=== PATIENT | female | born 1985 | race Caucasian/White ===

== ENCOUNTER 2020-05-04 17:21 | Emergency (ER) | payer BC ==
[2020-05-04 17:29] VITALS: BP 184/86
[2020-05-04] MEDS ORDERED: AMLODIPINE BESYLATE 5 MG TABLET PO ONE (17:52)
--- NOTE | 2020-05-04 17:52 | ER Document Report ---
HPI - HPI Patient complains to provider of: Elevated Blood Pressure Time Seen by Provider: 05/04/20 17:47 Pain Level: Denies Context: 35-year-old female past medical history significant for hypertension states she went to the doctor's office today to get ultrasound results and states that they told her her blood pressure was elevated 202/107. Patient admits that she has run out of her amlodipine. Forgot to call her primary care physician for help. States she did take her lisinopril as scheduled. Sent her to the emergency room because of her elevated blood pressure. She denies any chest pain, shortness of breath, no difficulty breathing. Asymptomatic with her elevated blood pressure. Associated Symptoms: None Exacerbated by: Denies Relieved by: Denies Similar symptoms previously: Yes - History of hypertension - CONSTITUTIONAL Constitutional: DENIES: Fever, Chills - EENT EENT: DENIES: Sore Throat, Ear Pain, Eye problems - NEURO Neurology: DENIES: Headache, Weakness, Vision blurred, Dizzinesss / Vertigo - CARDIOVASCULAR Cardiovascular: DENIES: Chest pain - RESPIRATORY Respiratory: DENIES: Trouble Breathing, Coughing - GASTROINTESTINAL Gastrointestinal: DENIES: Abdominal Pain, Black / Bloody Stools - URINARY Urinary: DENIES: Dysuria, Urgency, Frequency - REPRODUCTIVE LMP: 04/25/20 Reproductive: DENIES: : - MUSCULOSKELETAL Musculoskeletal: DENIES: Extremity pain Past Medical History - General Information source: Patient - Social History Smoking Status: Current Every Day Smoker Frequency of alcohol use: Occasional Drug Abuse: None Family History: Hypertension Patient has homicidal ideation: No Vertical Provider Document - CONSTITUTIONAL Agree With Documented VS: Yes Exam Limitations: No Limitations Notes: VITAL SIGNS: Within normal limits. GENERAL: No acute distress, non-toxic appearance. HEAD: Normal with no signs of head trauma. EYES: PERRLA, EOMI, conjunctiva normal, no discharge. EARS: Hearing grossly intact. NOSE: Normal. THROAT: Oropharynx is normal. NECK: Normal range of motion, no tenderness, supple, no lymphadenopathy, No adenopathy, no JVD. CHEST: Clear breath sounds bilaterally. No wheezes, rales, or rhonchi. CARDIAC: Regular rate and rhythm. S1 and S2, without murmurs, gallops, or rubs. VASCULAR: No Edema. Peripheral pulses normal and equal in all extremities. ABDOMEN: Normal and soft with no tenderness, no masses or pulsatile masses. GASTROINTESTINAL: Bowel sounds normal GENITOURINARY: Normal, No tenderness LYMPATHTIC: No lymphadenopathy noted. MUSCULOSKELETAL: Good range of motion of all major joints. Extremities without clubbing, cyanosis or edema. NEUROLOGICAL: Alert and oriented x 3. No focal sensory or strength deficits. Speech normal. Follows commands appropriately. PSYCHIATRIC: Normal Affect, judgement and mood. SKIN: Normal appearance with no rashes or lesions. - INFECTION CONTROL TRAVEL OUTSIDE OF THE [place] IN LAST 30 DAYS: No Course - Re-evaluation Re-evalutation: 05/04/20 18:19 Patient with stable blood pressure. She is asymptomatic no chest pain, no shortness of breath, no difficulty breathing. Patient was counseled on the importance of not running out of her blood pressure medications. Call primary care physician tomorrow for refill. Patient was given strict return to the emergency room guidelines. Return for any new or worsening symptoms. All questions were answered. Patient verbalized understanding and agrees with plan of care. - Vital Signs Vital signs: Temp Pulse Resp BP Pulse Ox 98.5 F 66 16 184/86 H 99 05/04/20 17:28 05/04/20 17:28 05/04/20 17:28 05/04/20 17:28 05/04/20 17:28 Discharge - Discharge Clinical Impression: Hypertension Qualifiers: Hypertension type: essential hypertension Qualified Code(s): I10 - Essential (primary) hypertension Condition: Stable Disposition: HOME, SELF-CARE Instructions: High Blood Pressure, Requiring Treatment ([facility]) Additional Instructions: Call your primary care physician tomorrow for a refill on her medications. Return to the emergency room for any new or worsening symptoms. Referrals: BHAKTI ACEVEDO PA-C [Primary Care Provider] - Follow up tomorrow (Call tomorrow for a medication refill)
== END 2020-05-04 18:26 | disposition home or self-care (01) ==
LOC: ER 17:21
DX: I10 Essential (primary) hypertension (principal); Z79.899 Other long term (current) drug therapy; F17.200 Nicotine dependence, unspecified, uncomplicated
CPT/HCPCS: 99283